=== PATIENT | female | born 1940 | race Caucasian/White ===

== ENCOUNTER 2019-07-29 09:52 | Outpatient (CLI) | payer MEDICARE, SELFPAY ==
--- NOTE | ~2019-07-29 | CT_ITS ---
EXAMINATION: CT abdomen pelvis w con INDICATION: Malignant neoplasm of the transverse colon TECHNIQUE: Computed tomographic images of the abdomen and pelvis were obtained after the administrati on of 100 cc of Omnipaque 350 intravenous contrast. The dose-length product (DLP) was 1414.24 mGy-cm. Automated exposure control and iterative reconstruction technique were employed. COMPARISON: 01/28/2019, 03/02/2016 FINDINGS: Nodules of the visualized right lower lobe are stable and consistent with old granulomatous disease. The heart size is normal. There is calcified coronary artery atherosclerosis. The gallbladd er is surgically absent. There is a 4 mm cyst of the left hepatic lobe. The spleen, pancreas, and adr enal glands are normal. There is a rim calcified cyst of the left kidney lower pole. An 8 mm cyst is present in the upper pole of the left kidney. There is calcified atherosclerosis of the aorta and man y of the other arteries. No pathologically enlarged abdominal or pelvic lymph nodes are identified. T here is no free intraperitoneal gas or evidence of bowel obstruction. Colonic diverticulosis is prese nt without evidence of diverticulitis. There are surgical changes of the transverse colon. There is s evere thoracic and lumbar spondylosis. There are multiple tiny midline ventral hernias containing fa t. IMPRESSION: 1. Surgical changes of the transverse colon without evidence of recurrent or metastatic disease. Reviewed, dictated and finalized at location A. IMPRESSION: 1. Surgical changes of the transverse colon without evidence of recurrent or me tastatic disease.
[2019-07-29 10:32] LABS: Estimated Glomerular Filt Rate 54
== END 2019-07-29 09:53 | disposition home or self-care (01) ==
LOC: ANHIMG 10:00
PROVIDERS: PCP Family Medicine; Visit Provider Internal Medicine Medical Oncology
DX: C18.4 Malignant neoplasm of transverse colon (principal); Z98.890 Other specified postprocedural states
CPT/HCPCS: 36415; 74177; Q9967

== ENCOUNTER 2020-01-24 07:32 | Outpatient (CLI) | payer MEDICARE, SELFPAY ==
--- NOTE | ~2020-01-24 | CT_ITS ---
EXAMINATION: CT abdomen pelvis w con INDICATION: Malignant neoplasm of the transverse colon TECHNIQUE: Computed tomographic images of the abdomen and pelvis were obtained after the administrati on of 100 cc of Omnipaque 350 intravenous contrast. The dose-length product (DLP) was 1372.40 mGy-cm. Automated exposure control and iterative reconstruction technique were employed. COMPARISON: 07/29/2019 FINDINGS: Stable nodules of the right lung base are consistent with old granulomatous disease. There is mild dependent atelectasis. The heart size is normal. Calcified atherosclerosis is noted. There is a stable 4 mm cyst in the left hepatic lobe of the otherwise normal liver. The gallbladder is surgic ally absent. The spleen, pancreas, and adrenal glands are normal. A rim calcified cyst is again noted in the right kidney lower pole. There is a 7 mm cyst in the left kidney upper pole. Stable surgical changes are noted in the transverse colon. No pathologically enlarged abdominal or pelvic lymph nodes are identified. There is no free intraperitoneal gas or evidence of bowel obstruction. There is calc ified atherosclerosis of the aorta and many of the other arteries. Colonic diverticulosis is present without evidence of diverticulitis. Severe thoracic and lumbar spondylosis are noted. Multiple small ventral hernias containing fat are again seen. IMPRESSION: 1. Stable surgical changes of the transverse colon without evidence of metastatic disease. Reviewed, dictated and finalized at location A. IMPRESSION: 1. Stable surgical changes of the transverse colon without evidence of metastat ic disease.
[2020-01-24 08:15] LABS: Estimated Glomerular Filt Rate 48
== END 2020-01-24 07:33 | disposition home or self-care (01) ==
PROVIDERS: PCP Family Medicine; Visit Provider Internal Medicine Medical Oncology
DX: C18.4 Malignant neoplasm of transverse colon (principal)
CPT/HCPCS: 74177; Q9967

== ENCOUNTER 2020-08-17 09:16 | Outpatient (CLI) | payer MEDICARE, SELFPAY ==
--- NOTE | ~2020-08-17 | CT_ITS ---
EXAMINATION: CT abdomen pelvis w con DATE: 08/17/2020 10:22 INDICATION: Colon cancer. TECHNIQUE: Computed tomography (CT) of the abdomen and pelvis was performed with 100 mL Omnipaque 350 intravenous contrast. Automated exposure control and iterative reconstruction technique were employe d. The dose-length product was 1242.32 mGy-cm. COMPARISON: CT abdomen and pelvis 01/24/2020 FINDINGS: The visualized portions of the lung bases demonstrate mild atelectasis. No pleural effusion . Cardiomegaly is noted. There are coronary artery calcifications. No pericardial effusion. Again see n are cysts in the liver measuring up to 5 mm. There are changes of cholecystectomy. The spleen, panc reas, and adrenal glands are normal. There is cortical thinning of the kidneys. There is a 10 mm rim- calcified mass in right kidney, likely benign. There is an 8 mm cyst in left kidney. There is diverti culosis of the colon without evidence of diverticulitis. There is an anastomosis in the transverse co yousif. The appendix is not visualized. There are no dilated loops of bowel. There are no pathologically enlarged lymph nodes. There is no free intraperitoneal fluid. There are small ventral hernias contai maria del rosario fat. There is severe thoracolumbar spondylosis. IMPRESSION: 1. No evidence of metastatic disease. Reviewed, dictated and finalized at location B.
[2020-08-17 10:22] LABS: Estimated Glomerular Filt Rate 54
== END 2020-08-17 09:17 | disposition home or self-care (01) ==
LOC: ANHIMG 09:20
PROVIDERS: PCP Family Medicine; Visit Provider Internal Medicine Medical Oncology
DX: C18.4 Malignant neoplasm of transverse colon (principal); N28.1 Cyst of kidney, acquired; K57.30 Diverticulosis of large intestine without perforation or abscess without bleeding; M47.815 Spondylosis without myelopathy or radiculopathy, thoracolumbar region
CPT/HCPCS: 74177; Q9967

== ENCOUNTER 2021-08-16 09:27 | Outpatient (CLI) | payer MEDICARE, SELFPAY ==
--- NOTE | ~2021-08-16 | CT_ITS ---
EXAMINATION: CT abdomen pelvis w con INDICATION: Malignant neoplasm of the transverse colon TECHNIQUE: Computed tomographic images of the abdomen and pelvis were obtained after the administrati on of 100 cc of Omnipaque 300 intravenous contrast. The dose-length product (DLP) was 1409.92 mGy-cm. Automated exposure control and iterative reconstruction technique were employed. COMPARISON: 08/17/2020 FINDINGS: Minimal dependent atelectasis is present in the lung bases. The heart size is normal. Cysts of the liver measure up to 5 mm. The gallbladder is surgically absent. The spleen, pancreas, and adr enal glands are normal. There is a stable 10 mm rim calcified mass of the right kidney lower pole. Th ere is an 8 mm cyst in the left kidney upper pole. There is a surgical anastomosis in the transverse colon. No residual or recurrent mass is identified. No pathologically enlarged abdominal or pelvic ly mph nodes are identified. There is no free intraperitoneal gas or evidence of bowel obstruction. Goodwin maria diverticulosis is present without evidence of diverticulitis. There is severe lumbar spondylosis. There are multiple small fat-containing ventral hernias. IMPRESSION: 1. Surgical changes of the transverse colon without evidence of residual, recurrent, or metastatic di simone. Reviewed, dictated and finalized at location A. IMPRESSION: 1. Surgical changes of the transverse colon without evidence of residual, recur rent, or metastatic disease.
== END 2021-08-16 09:28 | disposition home or self-care (01) ==
PROVIDERS: PCP Family Medicine; Visit Provider Internal Medicine Medical Oncology
DX: C18.4 Malignant neoplasm of transverse colon (principal)
CPT/HCPCS: 74177; Q9967

== ENCOUNTER 2023-02-22 11:14 | Outpatient (CLI) | payer MEDICARE, SELFPAY ==
[2023-02-22 19:18] LABS: Basophils Absolute Auto 0.1 K/mm3 (0.0-0.1); Basophils Percent Auto 0.8 % (0.2-1.2); Eosinophils Absolute Auto 0.2 K/mm3 (0-0.3); Eosinophils Percent Auto 2.9 % (0-4.4); Hematocrit 45.5 % (37.0-47.0); Hemoglobin 14.6 g/dL (12.0-15.0); Immature Granulocyte Absolute 0.02 K/mm3 (0.00-0.031); Immature Granulocyte Percent A 0.2 % (0-0.5); Lymphocytes Absolute Auto 1.68 K/mm3 (0.9-3.2); Lymphocytes Percent Auto 20.3 % (18.3-44.2); Mean Corpuscular HGB Conc 32.1 g/dl (32-36); Mean Corpuscular Hemoglobin 29.7 pg (26-34); Mean Corpuscular Volume 92.5 fl (80-100); Mean Platelet Volume 12.2 fl (7.4-10.4); Monocytes Absolute Auto 0.6 K/mm3 (0.1-0.6); Monocytes Percent Auto 6.7 % (2.6-8.5); Neutrophils Absolute Auto 5.7 K/mm3 (1.3-6.7); Neutrophils Percent Auto 69.1 % (45.5-73.1); Platelet Count Result 190 k/mm3 (150-375); Red Blood Count 4.92 M/mm3 (4.2-5.4); Red Cell Distribution Width 12.6 % (11.5-14.5); White Blood Count 8.3 K/mm3 (4.5-10.0)
[2023-02-22 19:58] LABS: Vitamin D 25 Hydroxy 67.6 ng/mL
[2023-02-22 20:08] LABS: Alanine Aminotransferase 25 U/L (6-35); Albumin Level 4.5 g/dL (3.5-5.1); Alkaline Phosphatase 83 U/L (38-126); Anion Gap 12 mmol/L (8-16); Aspartate Amino Transferase 52 U/L (14-36); Bilirubin,Total 0.9 mg/dL (0.2-1.3); Blood Urea Nitrogen 18 mg/dL (7-17); Calcium 9.9 mg/dL (8.4-10.2); Carbon Dioxide 26 mmol/L (22-30); Chloride 104 mmol/L (98-107); Cholesterol 154 mg/dL (0-200); Estimated Glomerular Filt Rate 53; Glucose 99 mg/dL (65-110); HDL Direct 44 mg/dL; Sodium 142 mmol/L (137-145); Triglycerides 130 mg/dL (<150)
[2023-02-22 20:20] LABS: LDL Cholesterol Direct 70 mg/dL
[2023-02-22 21:34] LABS: Hemoglobin A1C 5.6 % (<5.7)
== END 2023-02-22 11:15 | disposition home or self-care (01) ==
LOC: ANHGOSHLAB 11:15
PROVIDERS: PCP Family Medicine; Visit Provider Family Medicine
DX: Z12.9 Encounter for screening for malignant neoplasm, site unspecified (principal); C18.9 Malignant neoplasm of colon, unspecified; R73.9 Hyperglycemia, unspecified; E53.8 Deficiency of other specified B group vitamins; E55.9 Vitamin D deficiency, unspecified; I10 Essential (primary) hypertension; E78.5 Hyperlipidemia, unspecified
CPT/HCPCS: 36415; 80053; 80061; 82306; 82378; 82607; 83036; 84443; 85025

== ENCOUNTER → 2023-05-30 11:07 | Outpatient (REF) | payer MEDICARE, SELFPAY | LOC: ANHLAB 11:07 | PROVIDERS: PCP Family Medicine; Visit Provider Plastic Surgery | DX: B07.8 Other viral warts (principal) | CPT/HCPCS: 88305 ==

== ENCOUNTER 2023-11-28 13:54 | Outpatient (CLI) | payer MEDICARE, SELFPAY ==
[2023-11-28 16:55] LABS: Alanine Aminotransferase 21 U/L (6-35); Albumin Level 4.4 g/dL (3.5-5.1); Alkaline Phosphatase 83 U/L (38-126); Anion Gap 7 mmol/L (4-12); Aspartate Amino Transferase 53 U/L (14-36); Bilirubin,Total 0.6 mg/dL (0.2-1.3); Blood Urea Nitrogen 24 mg/dL (7-17); Calcium 9.5 mg/dL (8.4-10.2); Carbon Dioxide 29 mmol/L (22-30); Chloride 102 mmol/L (98-107); Estimated Glomerular Filt Rate 48; Glucose 99 mg/dL (65-110); Potassium 4.7 mmol/L (3.4-5.0); Sodium 138 mmol/L (137-145)
== END 2023-11-28 13:55 | disposition home or self-care (01) ==
LOC: ANHGOSHLAB 13:56
PROVIDERS: PCP Family Medicine; Visit Provider Family Medicine
DX: I12.9 Hypertensive chronic kidney disease with stage 1 through stage 4 chronic kidney disease, or unspecified chronic kidney disease (principal); N18.30 Chronic kidney disease, stage 3 unspecified
CPT/HCPCS: 36415; 80053

== ENCOUNTER 2024-03-06 09:48 | Outpatient (CLI) | payer MEDICARE, SELFPAY ==
[2024-03-06 20:30] LABS: Basophils Absolute Auto 0.1 K/mm3 (0.0-0.1); Eosinophils Absolute Auto 0.2 K/mm3 (0-0.3); Eosinophils Percent Auto 1.9 % (0-4.4); Hemoglobin 15.7 g/dL (12.0-15.0); Immature Granulocyte Absolute 0.01 K/mm3 (0.00-0.031); Immature Granulocyte Percent A 0.1 % (0-0.5); Lymphocytes Absolute Auto 1.84 K/mm3 (0.9-3.2); Lymphocytes Percent Auto 21.4 % (18.3-44.2); Mean Corpuscular Volume 93.7 fl (80-100); Mean Platelet Volume 11.8 fl (7.4-10.4); Monocytes Absolute Auto 0.7 K/mm3 (0.1-0.6); Monocytes Percent Auto 7.7 % (2.6-8.5); Neutrophils Absolute Auto 5.8 K/mm3 (1.3-6.7); Neutrophils Percent Auto 67.9 % (45.5-73.1); Platelet Count Result 168 k/mm3 (150-375); Red Blood Count 5.23 M/mm3 (4.2-5.4); White Blood Count 8.6 K/mm3 (4.5-10.0)
[2024-03-06 21:02] LABS: Alanine Aminotransferase 24 U/L (6-35); Albumin Level 4.5 g/dL (3.5-5.1); Alkaline Phosphatase 81 U/L (38-126); Anion Gap 8 mmol/L (4-12); Aspartate Amino Transferase 50 U/L (14-36); Bilirubin,Total 0.9 mg/dL (0.2-1.3); Blood Urea Nitrogen 20 mg/dL (7-17); Calcium 9.5 mg/dL (8.4-10.2); Carbon Dioxide 30 mmol/L (22-30); Chloride 103 mmol/L (98-107); Cholesterol 160 mg/dL (0-200); Estimated Glomerular Filt Rate 48; Glucose 112 mg/dL (65-110); HDL Direct 49 mg/dL; Potassium 5.2 mmol/L (3.4-5.0); Sodium 141 mmol/L (137-145); Triglycerides 152 mg/dL (<150)
[2024-03-06 21:13] LABS: LDL Cholesterol Direct 64 mg/dL
[2024-03-06 22:33] LABS: Hemoglobin A1C 5.7 % (<5.7)
[2024-03-06 23:04] LABS: Vitamin D 25 Hydroxy 49.5 ng/mL
== END 2024-03-06 09:49 | disposition home or self-care (01) ==
LOC: ANHGOSHLAB 09:49
PROVIDERS: PCP Family Medicine; Visit Provider Family Medicine
DX: E78.5 Hyperlipidemia, unspecified (principal); R73.9 Hyperglycemia, unspecified; I10 Essential (primary) hypertension; E53.8 Deficiency of other specified B group vitamins; E55.9 Vitamin D deficiency, unspecified
CPT/HCPCS: 36415; 80053; 80061; 82306; 82607; 83036; 84443; 85025

== ENCOUNTER 2024-09-09 15:18 | Outpatient (CLI) | payer MEDICARE, SELFPAY ==
--- OUTSIDE RECORDS SUMMARY | 2024-09-09 15:28 | XMS_ITS | Continuity of Care Document ---
Author Organization [facility] Address [address] [place] [address] Dr [address]ee [address] [place] [phone] Phone Care Team Providers Care Assembler Metal Furniture Name Role Phone [facility] Unavailable Unavail able Sickage, Evelyn Unavailable Unavailable Procedures Procedure Date Ultra Deluxe Frame Progressive Lens Per Lens Polycarb Lens Per Lens Anti-reflective Coating Post-op Follow-up Visit Refraction Jan- Post-op Follow-up Visit Remove Cataract, Insert Lens Post-op Follow-up Visit [facility]-Professional Post-op Follow-up Visit Remove Cataract, Insert Lens Office/outpatient Visit, Est [facility] Office/outpatient Visit, Est Visual Field Examination(s) Eye Exam & Treatment Refraction Optic Nerve Topography Optic Nerve Topography Office/outpatient Visit, Est Fundus Photography W/ Report Visual Field Examination(s) Frames Deluxe Progressive Lens, Hi Index Lens-Index 1.54-1.79 Glass Miscellaneous Vision Service - Supplies Anti-reflective Coating Eye Exam, New Patient Refraction Advance Directives Directive Yes / No Effective Date File Name No Information Encounters Encounter Description Practice Location Reason(s) For Visit Diagnoses Date Provider Providers Copied on Encounter [facility], [address], [place], [place], [id number], [place] tel:[phone] [facility] No Information Oct-2 2-201 0 [facility] . [address] [facility], [address], [place], [place], [address], [place]. tel:[phone] Referring Provider: Jason Mcallister, [address], [place], [place], [facility]. tel:[phone] lemuel Provider: Evelyn Spencer, [address] [place], [place], [facility]. tel:[phone] [facility], [address], [place], [place], [address], [place] tel:[phone] [facility] No Information Oct-2 1-201 0 Rosenthal OD Otoniel. [address] [facility] , [address], [place], [address], [place]. tel:[phone] [facility], [address], [place], [place], [id number], [place] tel:[phone] [facility] No Information Oct-0 6-201 0 Lowell Gomez. [address] [facility] [address], [address], [place], [address], [place]. tel:[phone] [facility], [address], [place], [place], [address], [place] tel:[phone] [facility] No Information Oct-0 5-201 0 Lowell Gomez. [address] [facility] , [address], [place], [address], [place]. tel:[phone] [facility], [address], [place], [place], [address], [place] tel:[phone] [facility] No Information Sep-2 3-201 0 Doisy Edkarla. [address] , [address], [place], [facility], [place]. tel:[phone] Referring Provider: Jason Mcallister, [address], [place], [facility]. tel:[phone] [facility], [address], [place], [place], [address], [place] tel:[phone] [facility] No Information Sep-0 8-201 0 Doisy Edkarla. [address] , [address], [place], [facility], [place]. tel:[phone] [facility], [address], [place], [place], [address], [place] tel:[phone] [facility] No Information Sep-0 7-201 0 Doisy [facility]la. [facility] [address], [address], [place], [facility], [place]. tel:[phone] Office/outpat ient Visit, Est [facility], [address] [place] [address] [address], [place], [place], [address], [place] tel:[phone] [facility] No Information Aug-2 3-201 0 Doisy Edkarla. [facility] [address], [address], [place], [facility], [place]. tel:[phone] Referring Provider: Jason Mcallister, [address], [place], [facility]. tel:[phone] Office/outpat ient Visit, [facility], [address] [place] [address] [address], [place], [place], [address], [place] tel:[phone] [facility] No Information May-1 2-201 0 Doisy Edkarla. [address], [address], [place], [facility], [place]. tel:[phone] [facility], [address] [place] [address] [address], [place], [place], [address], [place] tel:[phone] [facility] No Information Apr-3 0-201 0 Lowell Gomez. [address] , [address], [place], [facility], [place]. tel:[phone] Referring Provider: Jason Mcallister, [facility] [address], [place], [facility]. tel:[phone] [facility], [address] [place] [address] [address], [place], [place], [address], [place] tel:[phone] [facility] No Information Dec-1 7-200 9 Rosenthal OD Otoniel. [facility] [address], [address], [place], [facility], [place]. tel:[phone] [facility], [address] [place] [place] [address] [address], [place], [place], [address], [place] tel:[phone] [facility] No Information Oct-0 6-200 9 Rosenthal OD Otoniel. [facility] [address], [address], [place], [facility], [place]. tel:[phone] Referring Provider: Otoniel Rosenthal OD Ary, [facility] [address], [place], [facility]. tel:[phone] Office/outpat ient Visit, Est [facility], [address] [place] [address] [address], [place], [place], [address], [place] tel:[phone] [facility] No Information Aug-2 8-200 9 Rosenthal OD Otoniel. [facility] [address] , [address], [place], [facility], [place]. tel:[phone] Referring Provider: Otoniel Rosenthal OD A, [facility] [address], [place], [facility]. tel:[phone] [facility], located [facility], [address], [place], [place], [address], [place] tel:[phone] [facility] No Information Apr-2 4-200 9 Rosenthal OD Otoniel. [address] [facility] , [address], [place], [facility], . tel:[phone] Referring Provider: Otoniel Rosenthal [place] A, [address] [place] [address] [address], [place], [facility]. tel:[phone] [facility], [address] [place] [address] [address], [place], [place], [address], [place] tel:[phone] [facility] No Information Nov-2 5-200 8 [facility] . [address] [facility], [address], [place], [place], [address], [place]. tel:[phone] Referring Provider: Faby Cbob, [address] [place] [address] [address], [place], [facility]. tel:[phone] g Provider: Joy Alfred, [address] [facility], [place], [address]. tel:[phone] [facility], [address] [place], [place] [address], [place], [place], [address], tel:[phone] [facility] No Information Oct-0 9-200 8 Rosenthal OD Otoniel. [facility] , [address], [place], [facility], [place]. tel:[phone] Family History Family Member Type Diagnosis Age At Onset No Information Payers Payer name Insurance type Covered constitution party ID Authorpedro luisa anahimally(s) [employer] Plan CI [id number] Social History Type Description Quantity Date Captured Comments Sex Female Smoking Status No Information Chief Complaint And Reason For Visit No Information Reason For Referral Reason For Referral No Information History Of Present Illness Encounter Date Complaint History Of Prese nt Illness No Information Functional Status Date Functional Assessmen t No Information Instructions Date Instruction Additional Infor mation No Information Assessments Type Assessment Date No Information Patient Care Teams Name Effective Dates (start - stop) Status Members No Information
[2024-09-09 20:24] LABS: Alanine Aminotransferase 25 U/L (6-35); Albumin Level 4.6 g/dL (3.5-5.1); Alkaline Phosphatase 74 U/L (38-126); Anion Gap 9 mmol/L (4-12); Aspartate Amino Transferase 61 U/L (14-36); Bilirubin,Total 0.5 mg/dL (0.2-1.3); Blood Urea Nitrogen 20 mg/dL (7-17); Calcium 10.1 mg/dL (8.4-10.2); Carbon Dioxide 27 mmol/L (22-30); Chloride 105 mmol/L (98-107); Estimated Glomerular Filt Rate 59; Glucose 94 mg/dL (65-110); Potassium 4.5 mmol/L (3.4-5.0); Sodium 141 mmol/L (137-145)
[2024-09-09 20:51] LABS: Hemoglobin A1C 5.7 % (<5.7)
== END 2024-09-09 15:19 | disposition home or self-care (01) ==
LOC: ANHGOSHLAB 15:19
PROVIDERS: PCP Family Medicine; Visit Provider Family Medicine
DX: R73.9 Hyperglycemia, unspecified (principal); I10 Essential (primary) hypertension
CPT/HCPCS: 36415; 80053; 83036

== ENCOUNTER 2025-04-04 08:09 | Outpatient (CLI) | payer MEDICARE, SELFPAY ==
[2025-04-04 18:47] LABS: Hematocrit 46.6 % (37.0-47.0); Hemoglobin 14.9 g/dL (12.0-15.0); Immature Granulocyte Percent A 0.3 % (0-0.5); Lymphocytes Absolute Auto 1.64 K/mm3 (0.9-3.2); Mean Corpuscular HGB Conc 32.0 g/dl (32-36); Mean Corpuscular Hemoglobin 29.7 pg (26-34); Mean Corpuscular Volume 93.0 fl (80-100); Nucleated Red Blood Cells Absolute Auto 0.000 K/mm3 (0.0-0.012); Nucleated Red Blood Cells Perc 0.0 % (0.0-0.2); Platelet Count Result 150 k/mm3 (150-375); Red Blood Count 5.01 M/mm3 (4.2-5.4); White Blood Count 6.7 K/mm3 (4.5-10.0)
[2025-04-04 19:33] LABS: Thyroid Stimulating Hormone Reflex 4.910 uIU/mL (0.465-4.68)
[2025-04-04 19:38] LABS: Alanine Aminotransferase 23 U/L (6-35); Albumin Level 4.1 g/dL (3.5-5.1); Alkaline Phosphatase 77 U/L (38-126); Anion Gap 5 mmol/L (4-12); Aspartate Amino Transferase 39 U/L (14-36); Bilirubin,Total 0.7 mg/dL (0.2-1.3); Blood Urea Nitrogen 21 mg/dL (7-17); Calcium 9.5 mg/dL (8.4-10.2); Carbon Dioxide 27 mmol/L (22-30); Chloride 105 mmol/L (98-107); Cholesterol 149 mg/dL (0-200); Estimated Glomerular Filt Rate 50; Glucose 97 mg/dL (65-110); HDL Direct 44 mg/dL; Potassium 4.7 mmol/L (3.4-5.0); Sodium 137 mmol/L (137-145); Total Protein 7.1 g/dL (6.3-8.2); Triglycerides 160 mg/dL (<150)
[2025-04-04 20:06] LABS: Hemoglobin A1C 5.3 % (<5.7)
[2025-04-04 20:34] LABS: Vitamin B12 609.0 pg/mL (239-931)
[2025-04-04 21:36] LABS: Free T4 Free Thyroxine Reflex 1.04 ng/dL (0.78-2.19)
[2025-04-04 22:30] LABS: Total Triiodothyronine (T3) 1.26 NG/ML (0.82-1.58)
== END 2025-04-04 08:10 | disposition home or self-care (01) ==
LOC: ANHGOSHLAB 08:10
PROVIDERS: PCP Family Medicine; Visit Provider Family Medicine
DX: R73.9 Hyperglycemia, unspecified (principal); E55.9 Vitamin D deficiency, unspecified; E53.8 Deficiency of other specified B group vitamins; E78.5 Hyperlipidemia, unspecified; Z00.00 Encounter for general adult medical examination without abnormal findings; I10 Essential (primary) hypertension
CPT/HCPCS: 36415; 80053; 80061; 82306; 82607; 83036; 84439; 84443; 84480; 85025